=== PATIENT | female | born 2000 | race American Indian/Alaskan Native ===

== ENCOUNTER 2023-01-25 22:43 | Emergency (ER) | payer MEDICAID | END 2023-01-26 01:08 | disposition home or self-care (01) | LOC: DL.ED 22:43 | DX: O03.9 Complete or unspecified spontaneous abortion without complication (principal); Z88.8 Allergy status to other drugs, medicaments and biological substances; Z79.899 Other long term (current) drug therapy; Z86.16 Personal history of COVID-19 | CPT/HCPCS: 36415; 84702; 85014; 85018; 99283; 99284 ==

== ENCOUNTER 2023-01-27 00:07 | Observation (INO) | payer MEDICAID ==
[2023-01-27] MEDS ORDERED: Sodium Chloride 0.9% 10 ML Syringe FLUSH PRN ×2 (00:13→01:38)
[2023-01-27 01:03] LABS: PTT,PARTIAL THROMBOPLSTIN TIME 25.3 SEC (22.0-34.0)
[2023-01-27] MEDS ORDERED: Doxycycline Monohydrate 100 MG Cap PO ONE (01:08)
[2023-01-27] MEDS ORDERED: Lactated Ringers 1,000 ML IV ONE (01:14)
[2023-01-27] MEDS ORDERED: cefTRIAXone 500 MG Vial IM ONE (01:30)
[2023-01-27] MEDS ORDERED: cefTRIAXone 500 MG, Lidocaine 1% 1 ML IM ONE ×2 (01:35)
[2023-01-27] MEDS ORDERED: Misoprostol 400 MCG (4 X 100 MCG TAB) RECTAL ONE ×3 (01:38→03:25)
[2023-01-27] MEDS ORDERED: Tranexamic Acid 1,000 MG in Sodium Chloride 0.9% 100 ML IV PRN (01:38)
[2023-01-27] MEDS ORDERED: Lactated Ringers 1,000 ML IV SCH ×2 (01:45)
[2023-01-27] MEDS ORDERED: Oxytocin/Normal Saline 30 UNIT/500 ML BAG IV SCH (01:45)
[2023-01-27] MEDS ORDERED: Ibuprofen 800 MG Tab PO PRN (03:25)
[2023-01-27] MEDS ORDERED: Ondansetron 4 MG/2 ML SDV IVPUSH PRN (03:25)
[2023-01-27] MEDS ORDERED: Acetaminophen 325 MG Tab PO PRN (03:25)
[2023-01-27] MEDS: Simethicone 80 MG Tab.Chew PO SCH ×2 (08:06→13:41)
[2023-01-27] MEDS ORDERED: Doxycycline Monohydrate 100 MG Cap PO SCH (09:00)
[2023-01-27] MEDS ORDERED: Famotidine 20 MG/2 ML SDV IV ONE (17:32)
[2023-01-27] MEDS ORDERED: Ondansetron 4 MG/2 ML SDV IV ONE (17:32)
[2023-01-27] MEDS ORDERED: Phenylephrine HCl In 0.9% NaCl 1 MG/10 ML Syringe IV ONE (17:32)
[2023-01-27] MEDS ORDERED: Sugammadex Sodium 200 MG/2 ML VIAL IV ONE (17:32)
[2023-01-27] MEDS ORDERED: Rocuronium 100 MG/10 ML MDV IV ONE (17:32)
[2023-01-27] MEDS ORDERED: fentaNYL 100 MCG/2 ML SDV IV ONE (17:32)
[2023-01-27] MEDS ORDERED: Dexamethasone 4 MG/ML SDV IV ONE (17:32)
[2023-01-27] MEDS ORDERED: Propofol 200 MG/20 ML SDV IV ONE (17:32)
== END 2023-01-27 17:33 | disposition home or self-care (01) ==
LOC: DL.ED 00:07 → DL.MS 01:10
PROVIDERS: ADMIT Family Medicine; ATTEND Family Medicine
DX: O03.4 Incomplete spontaneous abortion without complication (principal); Z88.8 Allergy status to other drugs, medicaments and biological substances; Z98.890 Other specified postprocedural states; Z79.899 Other long term (current) drug therapy
CPT/HCPCS: 00940; 36415; 36430; 59812; 76815; 76857; 84702; 85018; 85025; 85027; 85610; 85730; 86850; 86900; 86901; 86920; 86922; 96360; 96372; 99284; 99285; A9270; G0378; J0696; J1100; J2405; J2704; J3010; J3490; J7120; P9016; J2370

== ENCOUNTER 2024-07-27 21:18 | Emergency (ER) | payer MEDICAID ==
[2024-07-27 22:31] LABS: AMPHETAMINES,URINE NEGATIVE (NEGATIVE); BARBITURATES,URINE NEGATIVE (NEGATIVE); BENZODIAZEPINE,URINE NEGATIVE (NEGATIVE); MDMA (ECSTASY), URINE NEGATIVE (NEGATIVE); METHADONE,URINE NEGATIVE (NEGATIVE); METHAMPHETAMINES,URINE NEGATIVE (NEGATIVE); OPIATES,URINE NEGATIVE (NEGATIVE); OXYCODONE,URINE NEGATIVE (NEGATIVE); PHENCYCLIDINE,URINE NEGATIVE (NEGATIVE); TCA,URINE NEGATIVE (NEGATIVE)
[2024-07-27 22:33] LABS: BASOPHILS PERCENT AUTO 0.2 % (0.0-1.0); EOSINOPHILS PERCENT AUTO 0.8 % (1.0-3.0); HEMATOCRIT 35.3 % (37.0-47.0); HEMOGLOBIN 11.9 g/dL (12.0-16.0); LYMPHOCYTES PERCENT AUTO 10.1 % (20.5-50.1); MEAN CORPUSCULAR HEMOGLOBIN 28.9 pg (27.0-34.0); MEAN CORPUSCULAR HGB CONC 33.7 g/dL (33.0-35.0); MEAN CORPUSCULAR VOLUME 85.7 fL (80-100); MONOCYTES PERCENT AUTO 4.5 % (2-8); NEUTROPHILS PERCENT AUTO 84.4 % (42.2-75.2); PLATELET COUNT,PLT 355 10^3/uL (150-450); RED BLOOD CELL COUNT 4.12 10^6/uL (4.2-5.4); WHITE BLOOD CELL COUNT,WBC 10.8 10^3/uL (5.0-10.0)
[2024-07-27 22:37] LABS: APPEARANCE,URINE CLEAR (CLEAR); BILIRUBIN,URINE NEGATIVE (NEGATIVE); COLOR,URINE YELLOW (YELLOW); GLUCOSE,URINE NEGATIVE (NEGATIVE); KETONES,URINE NEGATIVE (NEGATIVE); LEUKOCYTE ESTERASE,URINE NEGATIVE (NEGATIVE); NITRITE,URINE NEGATIVE (NEGATIVE); OCCULT BLOOD,URINE SMALL (NEGATIVE); PROTEIN,URINE NEGATIVE (NEGATIVE); UROBILINOGEN,URINE 0.2 mg/dL (0.2-1.0)
[2024-07-27 22:47] LABS: BACTERIA,URINE FEW /HPF (0-FEW/HPF); EPITHELIAL CELLS,URINE FEW /HPF (NOT SEEN); RBC,URINE 0-5 /HPF (0-5); WBC,URINE 0-5 /HPF (0-5/HPF)
[2024-07-27 22:52] LABS: A/G RATIO 1.3; ALANINE AMINOTRANSFERASE,ALT 18 U/L (14-59); ALBUMIN 4.4 g/dL (3.4-5.0); ALKALINE PHOSPHATASE 78 U/L (46-116); ANION GAP 12.5 mEq/L (7-13); ASPARTATE AMNIOTRANSFERASE,AST 8 U/L (15-37); BILIRUBIN TOTAL 0.4 mg/dL (0.2-1.0); BLOOD UREA NITROGEN,BUN 7 mg/dL (7-18); BUN/CREATININE RATIO 11.5 (No establ ref range); CALCIUM 9.1 mg/dL (8.5-10.1); CARBON DIOXIDE,CO2 29 mmol/L (21-32); CHLORIDE,CL 105 mmol/L (98-107); CREATININE 0.61 mg/dL (0.55-1.02); EST CRCL DRUG DOSING (CG) 114.41 mL/min; GLUCOSE RANDOM 116 mg/dL (70-99); POTASSIUM,K 3.5 mmol/L (3.5-5.1); PROTEIN TOTAL,TP 7.7 g/dL (6.4-8.2); SODIUM,NA 143 mmol/L (136-145)
[2024-07-27 22:54] LABS: HCG QUALITATIVE,SERUM NEGATIVE (NEGATIVE)
[2024-07-27 22:57] LABS: ESTIMATED GFR 130 mL/min (>=60); ETHANOL BLOOD MEDICAL < 3 mg/dL (0)
[2024-07-27] MEDS: Acetaminophen 500 MG Tab PO ONE (23:54)
== END 2024-07-27 23:55 | disposition home or self-care (01) ==
LOC: DL.ED 21:18
DX: F41.9 Anxiety disorder, unspecified (principal)
CPT/HCPCS: 36415; 80053; 80143; 80179; 80305-QW; 80307; 81001; 84703; 85025; 99283; A9270-GY